=== PATIENT | male | born 1975 | race Caucasian/White ===

== ENCOUNTER 2018-06-03 13:31 | Observation (INO) | payer BC, OTHER ==
[2018-06-03] MEDS ORDERED: NITROGLYCERIN 0.4 MG 25 EA TAB SL ONE ×3 (13:39→14:52)
[2018-06-03] MEDS ORDERED: ASPIRIN (CHEWABLE) 81 MG TAB ONE (13:39)
[2018-06-03] MEDS ORDERED: ASPIRIN (CHEWABLE) 81 MG TAB PO ONE (13:46)
[2018-06-03] MEDS ORDERED: ATORVASTATIN 20 MG TAB PO ONE (13:46)
[2018-06-03] MEDS ORDERED: METOPROLOL TARTRATE INJ 5 MG/5 ML VIAL IV ONE (13:46)
--- NOTE | 2018-06-03 13:54 | ED.PDOC ---
History of Present Illness - General Chief Complaint: Chest Pain/HI Time Seen by Provider: 06/03/18 13:45 Source: patient Exam Limitations: no limitations - History of Present Illness Initial Comments: Patient comes in for 20 min history of severe chest pain 4-9/10 sharp substernal chest pain that radiates to his jaw and under the left rib. He was walking back to his desk with onset. He does have associated nausea and diaphoresis but no shortness of breath. Patient has had a "heart incident" in his thirties when he was morbidly obese. He states cath at at that time did not result in stents or angioplasty. Patient at that time had HTN. He subsequently had gastric bypass and lost weight and had no more medical problems. He has >10 year smoking history but quit in Sep and started vaping. He did drink heavily but stopped in Sep as well although he did have a slip 2 days ago. He uses marijuana daily but denies other drug use. He has no cough, congestion, fever, chills, abdominal pain, diarrhea, or recent increase in activity. He denies recent trauma and does not take OTC supplements nor use caffeine supplements/drinks. Patient's father had AMI in his thirties. Timing/Duration: 1/2 hour Severity/Quality: moderate, sharp Location: substernal Chest Pain Radiation: jaw Activities at Onset: activity Prior Chest Pain/Cardiac Workup: cardiac cath, heart attack Improving Factors: nothing Worsening Factors: nothing Nitro Today/Relief: 0.4 mg x 1, provided by ED Aspirin Treatment Today: 325 mg x 1, provided by ED Associated Symptoms: diaphoresis, nausea/vomiting Allergies/Adverse Reactions: Allergies NO KNOWN ALLERGY Allergy (Verified 06/03/18 13:37) Review of Systems - Review of Systems Constitutional: States: diaphoresis. Denies: chills, fever, malaise EENTM: States: no symptoms reported. Denies: eye pain, ear pain, ear discharge , nose congestion, throat pain Respiratory: States: no symptoms reported. Denies: cough, short of breath, wheezing Cardiology: States: see HPI Gastrointestinal/Abdominal: States: nausea. Denies: abdominal pain, constipation, vomiting Genitourinary: States: no symptoms reported Musculoskeletal: States: no symptoms reported Skin: States: no symptoms reported Neurological: States: no symptoms reported Family Medical History - Family History Mother Family History: Unknown Physical Exam - Physical Exam General Appearance: Alert, Comfortable, No apparent distress Eyes, Ears, Nose, Throat Exam: PERRL/EOMI, normal ENT inspection, TMs normal, pharynx normal Neck: non-tender, full range of motion, supple, normal inspection, carotid bruit Respiratory: chest non-tender, lungs clear, normal breath sounds, no respiratory distress Cardiovascular/Chest: normal peripheral pulses, regular rate, rhythm, no edema, no gallop, no JVD, no murmur Peripheral Pulses: radial,right: 2+ Gastrointestinal/Abdominal: normal bowel sounds, non tender, soft, no organomegaly, no pulsatile mass Extremity: normal range of motion, non-tender Neurologic: alert, oriented x 3 Progress - Progress Progress: Patient was doing much better after nitro and morphine the pain went down to a 2. However, it has not completely resolved. Nitro ordered now and will monitor. 06/03/18 14:53 06/03/18 15:08 patient is doing much better. no chest pain but head is still hurting alot from the nitro. Toradol written for the HUGHES. Will monitor and plan to recheck enzymes in 2 hours. if negative call for obs admission 06/03/18 16:30 second set of enzymes are negative and patient is resting comfortably. discussed with functional director QUALITY CONTROL AUDITOR Leighton Vickers and will admit - Results/Orders Results/Orders: 06/03/18 13:00 PARTIAL THROMBOPLASTIN TIME Stat PROTHROMBIN TIME Stat 06/03/18 14:00 EKG STAT 06/03/18 14:52 Acetaminophen [Tylenol] 1,000 mg PO ONCE ONE Nitroglycerin 0.4 mg Tab [Nitrostat] 1 ea SL ONCE ONE Laboratory Results WBC 6.1 K/mm3 (4.8-10.8) 06/03/18 13:00 RBC 4.92 M/mm3 (4.70-6.10) 06/03/18 13:00 Hgb 15.4 gm/dL (14.0-18.0) 06/03/18 13:00 Hct 44.4 % (42.0-52.0) 06/03/18 13:00 MCV 90.3 fl (80.0-94.0) 06/03/18 13:00 MCH 31.3 pg (27.0-31.0) H 06/03/18 13:00 MCHC 34.7 g/dL (33.0-37.0) 06/03/18 13:00 RDW 12.5 % (11.5-14.5) 06/03/18 13:00 Plt Count 229 K/mm3 (130-400) 06/03/18 13:00 MPV 8.9 fl (7.40-10.4) 06/03/18 13:00 Absolute Neuts (auto) 3.50 K/uL (1.8-6.8) 06/03/18 13:00 Absolute Lymphs (auto) 1.90 K/uL (1.0-3.4) 06/03/18 13:00 Absolute Monos (auto) 0.40 K/uL (0.2-0.8) 06/03/18 13:00 Absolute Eos (auto) 0.20 K/uL (0.0-0.4) 06/03/18 13:00 Absolute Basos (auto) 0.00 K/uL (0.0-0.1) 06/03/18 13:00 Neutrophils % 57.6 % (42.0-78.0) 06/03/18 13:00 Lymphocytes % 31.6 % (20.0-50.0) 06/03/18 13:00 Monocytes % 7.4 % (2.0-9.0) 06/03/18 13:00 Eosinophils % 2.9 % (1.0-5.0) 06/03/18 13:00 Basophils % 0.5 % (0.0-2.0) 06/03/18 13:00 Sodium 140 mmol/L (135-145) 06/03/18 13:00 Potassium 4.2 mmol/L (3.6-5.0) 06/03/18 13:00 Chloride 105 mmol/L (101-111) 06/03/18 13:00 Carbon Dioxide 28 mmol/L (21-31) 06/03/18 13:00 Anion Gap 11.2 (12-18) L 06/03/18 13:00 BUN 16 mg/dL (7-18) 06/03/18 13:00 Creatinine 0.91 mg/dL (0.6-1.3) 06/03/18 13:00 BUN/Creatinine Ratio 17.6 (10-20) 06/03/18 13:00 Random Glucose 98 mg/dL (70-105) 06/03/18 13:00 Serum Osmolality 280.6 mOsm/L (275-295) 06/03/18 13:00 Calcium 9.2 mg/dL (8.4-10.2) 06/03/18 13:00 Magnesium 2.2 mg/dL (1.8-2.5) 06/03/18 13:00 Total Bilirubin 0.5 mg/dL (0.2-1.0) 06/03/18 13:00 AST 31 IU/L (10-42) 06/03/18 13:00 ALT 41 IU/L (10-60) 06/03/18 13:00 Alkaline Phosphatase 41 IU/L (42-121) L 06/03/18 13:00 Creatine Kinase 265 IU/L (38-174) H* 06/03/18 13:00 CK-MB (CK-2) 6.3 ng/mL (0.0-4.4) H* 06/03/18 13:00 CK-MB (CK-2) % 2.38 % (0.0-3.5) 06/03/18 13:00 Troponin I < 0.02 ng/mL (0.01-0.05) 06/03/18 13:00 Serum Total Protein 7.0 gm/dL (6.4-8.2) 06/03/18 13:00 Albumin 4.5 g/dl (3.2-5.5) 06/03/18 13:00 Globulin 2.5 gm/dL (2.3-3.5) 06/03/18 13:00 Albumin/Globulin Ratio 1.8 (1.1-1.9) 06/03/18 13:00 Patient Name: LULU REEVES Gender: Male Date of : 1975 Referring Physician: LOGAN SPENCER Organization: [facility] Accession Number: [id number] Requested Date: June 03, 2018 13:46 Report Status: Final Requested Procedure: 1 Procedure Description: Chest,1 View Modality: CR Findings Reporting MD: Sonal Jama Fellow MD: Not available Dictation Time: Tray Filler: Not available Box Car Washer Date: EXAM: Chest,1 View CLINICAL INDICATION: 43-year-old male with chest pain. TECHNIQUE: Single view, AP portable chest was obtained. COMPARISON: None. FINDINGS: Unremarkable cardiac and mediastinal silhouette. Heart size is normal. Lungs are clear without focal opacity, pneumothorax or pleural effusions. The visualized bones are within normal limits. IMPRESSION: No acute cardiopulmonary abnormalities. - EKG/XRAY/CT EKG: Sinus, no ST T wave changes Comments: HR of 67 with normal axis and normal QTC Departure - Departure Clinical Impression: Chest pain Qualifiers: Chest pain type: unspecified Qualified Code(s): R07.9 - Chest pain, unspecified Disposition: Admit Patient Condition: Good Departure Forms: ED Discharge - Pt. Copy, Patient Portal Self Enrollment Instructions: DI for Chest Pain Referrals: John Norton III, MD [Primary Care Provider] - 1-2 Weeks
[2018-06-03] MEDS ORDERED: MORPHINE SULFATE INJ 10 MG/ML VIAL IV ONE ×3 (13:57→16:33)
--- NOTE | 2018-06-03 14:19 | RAD ---
EXAM: Chest,1 View CLINICAL INDICATION: 43-year-old male with chest pain. TECHNIQUE: Single view, AP portable chest was obtained. COMPARISON: None. FINDINGS: Unremarkable cardiac and mediastinal silhouette. Heart size is normal. Lungs are clear without focal opacity, pneumothorax or pleural effusions. The visualized bones are within normal limits. IMPRESSION: No acute cardiopulmonary abnormalities. Electronically signed by: Sonal Jama MD 06/03/2018 2:18 PM CDT
[2018-06-03] MEDS ORDERED: ACETAMINOPHEN 500 MG TAB PO ONE (14:52)
[2018-06-03] MEDS ORDERED: KETOROLAC TROMETHAMINE INJ 30 MG/ML VIAL IV ONE (15:08)
[2018-06-03] MEDS ORDERED: MORPHINE SULFATE INJ 10 MG/ML VIAL IV PRN (17:24)
[2018-06-03] MEDS ORDERED: SODIUM CHLORIDE 0.9% (FLUSH) 10 ML SYG IV PRN (17:24)
[2018-06-03] MEDS ORDERED: ACETAMINOPHEN 325 MG TAB PO PRN (17:24)
[2018-06-03] MEDS ORDERED: IV SET AND CAP CHANGE INJ INJ SCH (17:30)
[2018-06-03] MEDS ORDERED: NITROGLYCERIN 0.4 MG/HR PATCH TOP SCH (17:30)
[2018-06-03] MEDS ORDERED: ENOXAPARIN SODIUM 100 MG/ML SYG SUBCU ONE (17:49)
[2018-06-03] MEDS ORDERED: ACETAMINOPHEN 325 MG TAB ONE (17:49)
[2018-06-03] MEDS ORDERED: NITROGLYCERIN 0.4 MG/HR PATCH TOP ONE (17:49)
[2018-06-03] MEDS ORDERED: SODIUM CHLORIDE 0.9% (FLUSH) 10 ML SYG IV SCH (21:00)
[2018-06-03 22:31] VITALS: BP 125/64; TEMP 96.3; O2SAT 97
[2018-06-04] MEDS ORDERED: ASPIRIN TABLET 325 MG TAB PO SCH (09:00)
--- NOTE | 2018-06-04 13:06 | SSS ---
SUPERVISING PHYSICIAN: Kai Villafuerte MD CHIEF COMPLAINT: Chest pain. HISTORY OF PRESENT ILLNESS: Mr. Trevino is a 43 year-old male patient who presented to the Emergency Room on 06/03/18 after he had some chest pain about 20 minutes prior to arrival. He noted they were anywhere from 4 to 9 /10, described as sharp, substernal, radiating into his jaw to his left rib. 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 He also associated some nausea and diaphoresis with his pain but no shortness of breath. He does have a history of previous a previous heart attack in his 30s secondary to morbid obesity. He had a heart catheterization at that time without any stint placement. He was noted to have some blockage but was unsure of the amount and where. On initial presentation to the Emergency Room he was hypertensive with a blood pressure of 171/101, heart rate 71, saturation 99% on room air, afebrile at 97.9. Initial laboratory studies showed normal white count. Coagulation studies showed normal PT/PTT. Chemistries showed normal electrolytes. Cardiac enzymes did show elevation of the CKMB of 6.3 with a CPK of 65 and initial troponin less than 0.02. EKG showed a normal sinus rhythm without any ST or T-wave changes. He required Nitroglycerin and morphine and became apparently pain free at which time he had a second set of enzymes drawn at approximately 2 1/2 hours after admission and they were all noted to be negative for any acute changes. Dr. Santiago, Emergency Room physician, then requested the patient be admitted for further cardiac evaluation and telemetry to further rule out acute myocardial infarction. Shortly after getting to the floor, within about 5 or 10 minutes he again started having a significant amount of pain describing it between 4 and 5/10 and required Nitroglycerin. After placement on a Nitro patch, the pain did resolve to about 1/10. EKG repeated continued to be without any significant changes. After further evaluation and continued pain, it was felt that the best course of action was to have the patient transferred for further cardiac evaluation given his past medical history of a previous myocardial infarction with unknown workup. PAST MEDICAL HISTORY: 1. Myocardial infarction in 2003. 2. Anxiety. PAST SURGICAL HISTORY: 1. Gastric bypass in October 2010. CURRENT MEDICATIONS: 1. Claritin 10 mg daily. 2. Vlld-pkb-pmystpg iron supplements daily. 3. Vitamin, 3 capsules daily. 4. Omeprazole 20 mg, half a tablet daily. ALLERGIES: NO KNOWN DRUG ALLERGIES. FAMILY HISTORY: Father at age 58 secondary to pancreatic colon angiocarcinoma. He had hypertension, coronary artery disease and cerebrovascular accident. Mother is currently living and is healthy. He has one brother that is living, one sister that has a defibrillator in place. SOCIAL HISTORY: The patient is a director [employer]. He is and lives in [place]. He has two children. He is a previous smoker but quit in September of this year when he smoked approximately a pack a day since age 19. He notes that he utilizes alcohol frequently but not every day. He denies any illicit drug use. REVIEW OF SYSTEMS: CONSTITUTIONAL: Noted he had some diaphoresis but not any chills, fevers or general malaise. HEENT: Denied ear pain, sore throat, ear drainage, nasal congestion. RESPIRATORY: No reported shortness of breath, wheezing or coughing. CARDIAC: As noted in history of present illness. GASTROINTESTINAL: Denied abdominal pain, constipation, vomiting or diarrhea. GENITOURINARY: Denies dysuria, hematuria, polyuria or other urinary symptoms. NEUROLOGICAL: Denies ataxia, seizures, syncopal episodes. PHYSICAL EXAMINATION: VITAL SIGNS: In the Emergency Room showed he was hypertensive with a blood pressure of 171/101, heart rate 71, respirations 18, saturation 99% on room air , afebrile at 97.9. His admission weight was 97.2 kg. GENERAL: On admission to the medical/surgical floor, the patient was in some mild discomfort, obviously from active approximately and slightly anxious but in no apparent distress. HEENT: Tympanic membranes are clear bilaterally. Oropharynx was pink, moist and without any lesions. NECK: Supple, non-tender, full range of motion. No jugular venous distention. HEART: Regular rate and rhythm without appreciable murmurs, rubs, or gallops. ABDOMEN: Soft, non-tender, positive bowel sounds. EXTREMITIES: Without cyanosis, clubbing, or edema. NEUROLOGIC: He is alert and oriented x 3. LABORATORY: CBC on admission showed a white count of 6,100, hemoglobin 15.4, hematocrit 44.4. Platelet count 229,000, differential without a left shift. He had a normal PT/PTT. Chemistries showed normal electrolytes, potassium 4.2, magnesium 2.2. Liver functions all showed to be within normal limits. Cardiac enzymes showed an elevated CPK 265 with CKMB of 6.3 with troponin less than 0.02. Repeat troponin at 3 hours was less than 0.02 and again at 4 hours was less than 0.02 with CPK now showing to be 200 with CKMB of 4.9. RADIOLOGY: Chest x-ray in the Emergency Department per radiology interpretation , single-view chest showed no acute cardiopulmonary abnormalities. ASSESSMENT: 1. Unstable angina requiring transfer for further cardiac evaluation with the patient having a significant cardiac history and pervious myocardial infarction in his 30s. 2. Nicotine addition having quit in September of this year after smoking sine age 19. 3. Obesity with body mass index of 31.7 having previously had a gastric bypass. HOSPITAL COURSE: Mr Trevino was initially admitted to the medical/surgical floor for further rule out of a myocardial infarction. Shortly after getting from the Emergency Room to the Floor, he started once again having chest pains. In the Emergency Room he was given morphine, Nitro and Toradol which did result in some improvement in his pain. On the Floor, he was put on a Nitro patch at 0.4 mg per hour. He was given 100 mg of Lovenox subcu as well as he had aspiring and a beta mirta in the Emergency Room. Given the patient's past history and nature of his chest pains that occurred, without exertional effort and continued to respond to Nitro but not completely reside, it was felt the best course of action was to have the patient transferred to high level care for further cardiac evaluation. Transfer was arranged at [facility] with accepting physician, Dr. Sanchez, hospitalist. The patient was showing to be stable at time of transfer. He was to be transferred by ground ambulance. PLAN: Mr. Trevino is to be discharged to transfer to [facility] for higher level of care for cardiology not available at [place]. He was on a Nitro patch at 0.4 mg per hour with IVs in place. CONDITION ON DISCHARGE: Stable. Accepting physician is Dr. Sanchez. DISPOSITION: Transferred in stable condition via ground ambulate4 to [facility] for higher level of care. #[id number] [facility]
== END 2018-06-03 20:45 | disposition short-term general hospital (02) ==
LOC: ER 13:31 → MS 16:39
PROVIDERS: ADMIT Nurse Practitioner Family; ATTEND Nurse Practitioner Family
DX: I20.0 Unstable angina (principal); R51 Headache; I10 Essential (primary) hypertension; I25.2 Old myocardial infarction; E66.01 Morbid (severe) obesity due to excess calories; Z68.31 Body mass index [BMI] 31.0-31.9, adult; Z79.899 Other long term (current) drug therapy; Z87.891 Personal history of nicotine dependence; Z98.84 Bariatric surgery status; Z82.49 Family history of ischemic heart disease and other diseases of the circulatory system
CPT/HCPCS: 96372; J1885; J2270 ×3; J1650; 82553 ×2; 80053; 36415 ×2; 85025; 82550 ×2; 83735; 85730; 85610; 84484 ×3; 71045; 94760; 99285; 93005 ×2; G0378; 96374; 96375; 96376

== ENCOUNTER → 2018-11-30 | Outpatient (CLI) | payer OTHER ==
--- NOTE | 2018-11-30 19:34 | MRI ---
EXAM DESCRIPTION: Brain w/wo Contrast: Magnetic Resonance Imaging. CLINICAL HISTORY: 43 years Male MIGRAINE COMPARISON: None. TECHNIQUE: Multiplanar, high-field MRI, multiple conventional sequences, without and with gadolinium IV contrast. No adverse reactions. Multiple axial diffusion sequences. FINDINGS: Normal FLAIR and T2-weighted signal in the periventricular white matter and dove-white matter junctions of the cerebral hemispheres. . No hemorrhage, mass effect, cerebral edema, abnormal contrast enhancement, or diffusion restriction. Normal signal in the bilateral basal ganglia. No hemorrhage, no cerebral edema, no mass-effect. Normal contrast enhancement. No diffusion restriction. Normal signal in the brainstem and cerebellar hemispheres. No hemorrhage, no cerebral edema, no mass-effect. Normal contrast enhancement. No diffusion restriction. Concordance of the diffusion and non-diffusion sequences with no evidence of acute or subacute infarction. Cortical sulci, ventricles, and other CSF spaces, and the subdural spaces are normally configured. No effacement or displacement. No midline shift. No extra-axial hemorrhage. Normal contrast enhancement. Normal flow signal void in the major vessels of the [place], and the venous sinuses. IACs are symmetric bilaterally. Normal signal in the bilateral mastoid air cells. No mass effect in the bilateral Cerebellopontine angles. Normal contrast enhancement. Pituitary gland occupies most of the sella. Normal contrast enhancement. Base of the cerebellar tonsils is slightly above the foramen magnum. Minimal mucoperiosteal thickening and enhancement in the paranasal sinuses. No air-fluid levels. The bony calvarium is intact. IMPRESSION: Normal MRI scan of the brain without and with gadolinium IV contrast and with noncontrast diffusion scanning. Minimal chronic paranasal sinusitis. Electronically signed by: Truman Carranza MD 11/30/2018 7:30 PM CDT
== END ==
LOC: MRI 07:51
PROVIDERS: ATTEND Family Medicine
DX: G43.109 Migraine with aura, not intractable, without status migrainosus (principal); J32.9 Chronic sinusitis, unspecified

== ENCOUNTER → 2019-10-03 | Outpatient (CLI) | payer OTHER ==
--- NOTE | 2019-10-04 09:49 | US ---
EXAM DESCRIPTION: Gall Bladder: ULTRASOUND. CLINICAL HISTORY: Generalized abdominal pain COMPARISON: None. TECHNIQUE: Transabdominal scanning: Chavez-scale and Doppler modes. FINDINGS: Gallbladder: normal size, shape, echogenicity; no intraluminal stones or sludge. No fluid around the gallbladder. No wall thickening. 2.0 mm. Non-tender with transducer pressure. Common bile duct: caliber 4.8 mm within normal limits. Liver: Increased echogenicity; contour liver capsule smooth where seen. No fluid around the liver. Intrahepatic biliary ducts normal caliber. Doppler hepatopedal flow portal vein.. Long axis right lobe 17.9 cm. Pancreas: normal size Normal echogenicity. Duct not seen. Aorta: Proximal aorta 2 cm normal caliber. Right kidney: long axis is 11.8 cm. Cortical thickness 11 mm. Increased cortical echogenicity. No echogenic stones or hydronephrosis.. IMPRESSION: Liver minimally enlarged with steatosis. Otherwise unremarkable. Gallbladder and common bile duct are negative. Normal caliber of the proximal aorta. Increased echogenicity and thinning of the right renal cortex could indicate medical renal disease. Correlate with clinical findings. Electronically signed by: Truman Carranza MD 10/04/2019 9:47 AM SENIOR IT SECURITY ANALYST
== END ==
LOC: US 09:35
PROVIDERS: ATTEND Nurse Practitioner Family
DX: K76.0 Fatty (change of) liver, not elsewhere classified (principal); N28.9 Disorder of kidney and ureter, unspecified